=== PATIENT | female | born 1985 | race Two or more races ===

== ENCOUNTER 2021-12-11 08:48 | Emergency (ER) | payer MEDICAID ==
[2021-12-11] MEDS ORDERED: Sodium Chloride 0.9% 10 ML Syringe FLUSH PRN (09:48)
[2021-12-11] MEDS ORDERED: Ondansetron 4 MG/2 ML SDV IVPUSH ONE (09:48)
[2021-12-11] MEDS ORDERED: Sodium Chloride 0.9% 1,000 ML IV SCH (10:00)
[2021-12-11] MEDS ORDERED: Sodium Chloride 0.9% 0 ML ONE (10:41)
[2021-12-11] MEDS ORDERED: Ondansetron 4 MG/2 ML SDV ONE (10:41)
== END 2021-12-11 14:30 | disposition home or self-care (01) ==
LOC: JD.ED 08:48
DX: F10.920 Alcohol use, unspecified with intoxication, uncomplicated (principal); E03.9 Hypothyroidism, unspecified; Z86.16 Personal history of COVID-19; Z79.899 Other long term (current) drug therapy; Z90.49 Acquired absence of other specified parts of digestive tract
CPT/HCPCS: 36415; 80053; 80306; 80307; 83690; 84703; 85025; 96361; 96374; 99284; J2405; J3490; J7030; 99282

== ENCOUNTER 2021-12-14 08:44 | Emergency (ER) | payer MEDICAID ==
[2021-12-14] MEDS ORDERED: Lactated Ringers 1,000 ML IV ONE ×2 (09:18→12:00)
[2021-12-14] MEDS ORDERED: Ondansetron 4 MG/2 ML SDV IVPUSH ONE ×3 (09:18→17:00)
[2021-12-14] MEDS: Alum Hydrox/Mag Hydrox/Simeth 30 ML, Lidocaine 2% 15 ML PO ONE ×4 (09:57→10:37)
[2021-12-14] MEDS ORDERED: Magnesium Oxide 400 MG Tab PO ONE (11:32)
[2021-12-14] MEDS ORDERED: Ondansetron 4 MG/2 ML SDV ONE (12:03)
[2021-12-14] MEDS ORDERED: Lactated Ringers 1,000 ML ONE ×2 (12:04→18:30)
[2021-12-14] MEDS ORDERED: LORazepam 2 MG/ML SDV IVPUSH ONE ×2 (17:00→17:53)
[2021-12-14] MEDS ORDERED: Lactated Ringers 1,000 ML IV SCH (18:45)
== END 2021-12-14 19:45 | disposition swing bed (61) ==
LOC: JD.ED 08:44
DX: F10.239 Alcohol dependence with withdrawal, unspecified (principal); E03.9 Hypothyroidism, unspecified; F17.210 Nicotine dependence, cigarettes, uncomplicated; Z79.899 Other long term (current) drug therapy; Z86.16 Personal history of COVID-19; Z90.49 Acquired absence of other specified parts of digestive tract; Z20.822 Contact with and (suspected) exposure to COVID-19
CPT/HCPCS: 36415; 71045; 80053; 80307; 83735; 85025; 87635; 93005; 96361; 96374; 96375; 96376; 99285; A9270; J2060; J2405; J7120; U0002

== ENCOUNTER 2021-12-20 11:37 | Emergency (ER) | payer MEDICAID ==
[2021-12-20] MEDS ORDERED: SODIUM CHLORIDE 0.9% IV ONE ×2 (12:34→13:45)
[2021-12-20] MEDS ORDERED: PROMETHAZINE IV ONE ×2 (12:34→13:45)
[2021-12-20] MEDS ORDERED: Dextrose 5%-0.9% NaCl 1,000 ML IV SCH (12:45)
[2021-12-20 15:27] LABS: ESTIMATED GFR 118 mL/min (>60)
[2021-12-20] MEDS ORDERED: Calcium Carbonate 500 MG Tab.Chew PO SCH (17:45)
[2021-12-20] MEDS ORDERED: Lactated Ringers 1,000 ML IV SCH (17:45)
[2021-12-20] MEDS: Potassium Chloride 10 MEQ in Premix Bag 1 BAG IV SCH ×3 (19:34→21:49)
== END 2021-12-21 03:06 ==
LOC: JD.ED 11:37
DX: R45.851 Suicidal ideations (principal); F10.20 Alcohol dependence, uncomplicated; E87.6 Hypokalemia; E03.9 Hypothyroidism, unspecified; Z79.899 Other long term (current) drug therapy; Z86.16 Personal history of COVID-19; Z90.49 Acquired absence of other specified parts of digestive tract; Z20.822 Contact with and (suspected) exposure to COVID-19; W23.1XXA Caught, crushed, jammed, or pinched between stationary objects, initial encounter
CPT/HCPCS: 36415; 71045; 73090; 74018; 80053; 80306; 80307; 82009; 83735; 85025; 85379; 85610; 85730; 86140; 87635; 96361; 96365; 96366; 96367; 99284; A9270; J2550; J3480; J7042; J7120; U0002

== ENCOUNTER 2021-12-21 13:13 | Emergency (ER) | payer MEDICAID ==
[2021-12-21] MEDS ORDERED: Ondansetron 4 MG Tab.DIS PO ONE (13:40)
[2021-12-21] MEDS ORDERED: LORazepam 0.5 MG Tab PO ONE (13:40)
== END 2021-12-21 17:00 | disposition home or self-care (01) ==
LOC: JD.ED 13:13
DX: F10.930 Alcohol use, unspecified with withdrawal, uncomplicated (principal); E03.9 Hypothyroidism, unspecified; F17.210 Nicotine dependence, cigarettes, uncomplicated; Z79.899 Other long term (current) drug therapy; Z86.16 Personal history of COVID-19
CPT/HCPCS: 81001; 87086; 99284; A9270

== ENCOUNTER 2021-12-30 06:40 | Emergency (ER) | payer MEDICAID | END 2021-12-30 07:40 | disposition home or self-care (01) | LOC: JD.ED 06:40 | DX: T80.1XXA Vascular complications following infusion, transfusion and therapeutic injection, initial encounter (principal); Z79.899 Other long term (current) drug therapy; Z90.49 Acquired absence of other specified parts of digestive tract; Z86.16 Personal history of COVID-19 | CPT/HCPCS: 99282; 99283 ==